=== PATIENT | male | born 1955 | race Caucasian/White ===

== ENCOUNTER 2024-02-17 17:55 | Outpatient (CLI) | payer MEDICARE | END 2024-02-17 23:59 | disposition critical access hospital (66) | LOC: EMS 17:55 | DX: R41.0 Disorientation, unspecified (principal); M54.50 Low back pain, unspecified; W19.XXXA Unspecified fall, initial encounter; R32 Unspecified urinary incontinence; R00.0 Tachycardia, unspecified | CPT/HCPCS: A0425; A0429 ==

== ENCOUNTER 2024-02-17 18:15 | Inpatient (IN) | payer MEDICARE, OTHER ==
--- NOTE | 2024-02-17 18:40 | ED Physician Documentation ---
History of Present Illness - Stated complaint Stated Complaint: CONFUSION, FELL, FOUND ON FLOOR - Chief complaint Chief Complaint: Neuro - Additonal information Additional information: Patient is a 68-year-old male presenting to the emergency department after receiving call from EMS who noted that he was found on the ground by family and very confused. Patient on arrival knows the year but not the date. He does report falling but does not recall. He notes pain to his head and his left shoulder and neck but no other pain. He does not recall but does feel that he fell multiple times at home today. He notes he did not take any of his medications. He is on oxygen at this time as saturations were in the 83% and he was significantly tachycardic on arrival. Blood sugar was stable in the 140s on arrival.Patient is not on oxygen at baseline. PD PAST MEDICAL HISTORY - Past Medical History Endocrine/Autoimmune: Type 2 diabetes - Allergies Allergies/Adverse Reactions: Allergies Allergy/AdvReac Type Severity Reaction Status Date / Time Unable to Assess Allergy Verified 02/17/24 18:25 - Social History Does the pt smoke?: No Smoking Status: Never smoker - POLST Patient has POLST: No PD ED PE NORMAL - Vitals Vital signs reviewed: Yes - General General: Other (Patient ANO x 1 on arrival.) - HEENT HEENT: Atraumatic, Other (Dry mucous membranes appreciated.) - Neck Neck: Supple, no meningeal sign - Cardiac Cardiac: RRR, No murmur, No gallop, No rub, Strong equal pulses - Respiratory Respiratory: Other (Patient hypoxic on arrival and started on nasal cannula oxygen.) - Abdomen Abdomen: Normal bowel sounds - Male Male : Deferred - Rectal Rectal: Deferred - Back Back: No CVA TTP, No spinal TTP - Derm Derm: Normal color, Warm and dry, No rash - Extremities Extremities: No deformity, No edema, Other (No pain on palpation of the upper or lower extremities no obvious deformity appreciated no bruising no rash no swelling appreciated on examination.) - Free text exam Free text exam: Patient able to answer questions without difficulty. Patient aware he is in a hospital but not sure of the date. Patient denies any pain other than neck pain and left shoulder pain. Results - Vitals Vitals: Vital Signs - 24 hr 02/17/24 02/17/24 02/17/24 18:25 19:00 20:10 Temperature 36.8 C Heart Rate 148 H 121 H Respiratory 20 18 Rate Blood Pressure 146/102 H 132/88 H O2 Saturation 89 L 95 96 If not protocol 2 : Oxygen Flow, liters/minute 02/17/24 02/17/24 02/17/24 20:32 20:43 21:06 Temperature Heart Rate 125 H 128 H 120 H Respiratory 18 25 H 28 H Rate Blood Pressure 130/84 H 161/101 H O2 Saturation 97 97 97 If not protocol 3 3 3 : Oxygen Flow, liters/minute 02/17/24 21:30 Temperature Heart Rate 124 H Respiratory Rate Blood Pressure 146/87 H O2 Saturation 98 If not protocol 2 : Oxygen Flow, liters/minute Oxygen O2 Source Nasal cannula Oxygen Flow Rate 3 - EKG (time done) 1858 EKG releavant findings:: EKG personally interpreted by author of this note. Relevant findings are: Rate: Rate (enter#), [place], Tachy, Other Rhythm: Atrial fibrillation [place]: Normal QRS: Normal Compare to prior EKG: Old EKG unavailable Computer interpretation: Agree with computer 2041 EKG releavant findings:: EKG personally interpreted by author of this note. Relevant findings are: Rate: Rate (enter#) Rhythm: Atrial fibrillation [place]: Normal QRS: Normal Compare to prior EKG: Unchanged from prior EKG Computer interpretation: Agree with computer - Labs Labs: Laboratory Tests 02/17/24 02/17/24 02/17/24 18:52 18:53 18:53 WBC RBC Hgb Hct MCV MCH MCHC RDW Plt Count MPV Neut # (Auto) Lymph # (Auto) [place] # (Auto) Eos # (Auto) Baso # (Auto) Absolute Nucleated RBC Nucleated RBC % PT INR Sodium Potassium Chloride Carbon Dioxide Anion Gap BUN Creatinine Estimated GFR (MDRD) Glucose Lactic Acid Calcium Magnesium Total Bilirubin AST ALT Alkaline Phosphatase Total Creatine Kinase Troponin I High Sens B-Natriuretic Peptide Total Protein Albumin Globulin Albumin/Globulin Ratio TSH Urine Color BROWN Urine Clarity CLEAR Urine pH 6.0 Ur Specific Ward >=1.030 H Urine Protein 100 H Urine Glucose (UA) 100 H Urine Ketones 15 H Urine Occult Blood NEGATIVE Urine Nitrite POSITIVE H Urine Bilirubin MODERATE H Urine Urobilinogen >=8.0 H Ur Leukocyte Esterase NEGATIVE Urine RBC 0-5 Urine WBC 0-3 Ur Squamous Epith Cells RARE Squamous Urine Crystals 11-25 Bilirubin Urine Bacteria Rare Urine Mucus Moderate Strands Ur Microscopic Review INDICATED Urine Culture Comments INDICATED Nasal Adenovirus (PCR) NOT DETECTED Nasal B. parapertussis DNA (PCR) NOT DETECTED Nasal Coronavir 229E PCR NOT DETECTED Nasal Coronavir HKU1 PCR NOT DETECTED Nasal Coronavir NL63 PCR NOT DETECTED Nasal Coronavir OC43 PCR NOT DETECTED Nasal Enterovir/Rhinovir PCR NOT DETECTED Nasal Influenza B PCR NOT DETECTED Nasal Influenza A PCR NOT DETECTED Nasal Parainfluen 1 PCR NOT DETECTED Nasal Parainfluen 2 PCR NOT DETECTED Nasal Parainfluen 3 PCR NOT DETECTED Nasal Parainfluen 4 PCR NOT DETECTED Nasal RSV (PCR) NOT DETECTED Nasal B.pertussis DNA PCR NOT DETECTED Nasal C.pneumoniae (PCR) NOT DETECTED Devin Human Metapneumo PCR NOT DETECTED Nasal M.pneumoniae (PCR) NOT DETECTED Nasal SARS-CoV-2 (PCR) NOT DETECTED Urine Opiates Screen NEGATIVE Ur Buprenorphine Scrn NEGATIVE Ur Oxycodone Screen NEGATIVE Urine Methadone Screen NEGATIVE Ur Barbiturates Screen NEGATIVE Ur Tricyclics Screen NEGATIVE Ur Phencyclidine Scrn NEGATIVE Ur Amphetamine Screen NEGATIVE U Methamphetamines Scrn POSITIVE H U Benzodiazepines Scrn NEGATIVE Urine Cocaine Screen NEGATIVE U Cannabinoids Screen NEGATIVE Ur Drug Screen Comment CUTOFF CONC BELOW: Ethyl Alcohol 02/17/24 02/17/24 02/17/24 19:05 19:05 19:05 WBC 13.3 H RBC 5.54 Hgb 16.0 Hct 49.3 MCV 89.0 MCH 28.9 MCHC 32.5 RDW 13.2 Plt Count 145 MPV 10.6 Neut # (Auto) 11.7 H Lymph # (Auto) 0.8 L [place] # (Auto) 0.7 Eos # (Auto) 0.0 Baso # (Auto) 0.0 Absolute Nucleated RBC 0.00 Nucleated RBC % 0.0 PT 14.3 H INR 1.3 H Sodium 137 Potassium 3.7 Chloride 101 Carbon Dioxide 26 Anion Gap 10.0 BUN 24 H Creatinine 0.9 Estimated GFR (MDRD) 84 L Glucose 171 H Lactic Acid Calcium 9.7 Magnesium 1.7 Total Bilirubin 1.9 H AST 31 ALT 24 Alkaline Phosphatase 65 Total Creatine Kinase 471 H Troponin I High Sens B-Natriuretic Peptide Total Protein 7.7 Albumin 4.1 Globulin 3.6 Albumin/Globulin Ratio 1.1 TSH Urine Color Urine Clarity Urine pH Ur Specific Ward Urine Protein Urine Glucose (UA) Urine Ketones Urine Occult Blood Urine Nitrite Urine Bilirubin Urine Urobilinogen Ur Leukocyte Esterase Urine RBC Urine WBC Ur Squamous Epith Cells Urine Crystals Urine Bacteria Urine Mucus Ur Microscopic Review Urine Culture Comments Nasal Adenovirus (PCR) Nasal B. parapertussis DNA (PCR) Nasal Coronavir 229E PCR Nasal Coronavir HKU1 PCR Nasal Coronavir NL63 PCR Nasal Coronavir OC43 PCR Nasal Enterovir/Rhinovir PCR Nasal Influenza B PCR Nasal Influenza A PCR Nasal Parainfluen 1 PCR Nasal Parainfluen 2 PCR Nasal Parainfluen 3 PCR Nasal Parainfluen 4 PCR Nasal RSV (PCR) Nasal B.pertussis DNA PCR Nasal C.pneumoniae (PCR) Devin Human Metapneumo PCR Nasal M.pneumoniae (PCR) Nasal SARS-CoV-2 (PCR) Urine Opiates Screen Ur Buprenorphine Scrn Ur Oxycodone Screen Urine Methadone Screen Ur Barbiturates Screen Ur Tricyclics Screen Ur Phencyclidine Scrn Ur Amphetamine Screen U Methamphetamines Scrn U Benzodiazepines Scrn Urine Cocaine Screen U Cannabinoids Screen Ur Drug Screen Comment Ethyl Alcohol 02/17/24 02/17/24 02/17/24 19:05 19:05 19:05 WBC RBC Hgb Hct MCV MCH MCHC RDW Plt Count MPV Neut # (Auto) Lymph # (Auto) [place] # (Auto) Eos # (Auto) Baso # (Auto) Absolute Nucleated RBC Nucleated RBC % PT INR Sodium Potassium Chloride Carbon Dioxide Anion Gap BUN Creatinine Estimated GFR (MDRD) Glucose Lactic Acid 1.8 Calcium Magnesium Total Bilirubin AST ALT Alkaline Phosphatase Total Creatine Kinase Troponin I High Sens 6.8 B-Natriuretic Peptide Total Protein Albumin Globulin Albumin/Globulin Ratio TSH Urine Color Urine Clarity Urine pH Ur Specific Ward Urine Protein Urine Glucose (UA) Urine Ketones Urine Occult Blood Urine Nitrite Urine Bilirubin Urine Urobilinogen Ur Leukocyte Esterase Urine RBC Urine WBC Ur Squamous Epith Cells Urine Crystals Urine Bacteria Urine Mucus Ur Microscopic Review Urine Culture Comments Nasal Adenovirus (PCR) Nasal B. parapertussis DNA (PCR) Nasal Coronavir 229E PCR Nasal Coronavir HKU1 PCR Nasal Coronavir NL63 PCR Nasal Coronavir OC43 PCR Nasal Enterovir/Rhinovir PCR Nasal Influenza B PCR Nasal Influenza A PCR Nasal Parainfluen 1 PCR Nasal Parainfluen 2 PCR Nasal Parainfluen 3 PCR Nasal Parainfluen 4 PCR Nasal RSV (PCR) Nasal B.pertussis DNA PCR Nasal C.pneumoniae (PCR) Devin Human Metapneumo PCR Nasal M.pneumoniae (PCR) Nasal SARS-CoV-2 (PCR) Urine Opiates Screen Ur Buprenorphine Scrn Ur Oxycodone Screen Urine Methadone Screen Ur Barbiturates Screen Ur Tricyclics Screen Ur Phencyclidine Scrn Ur Amphetamine Screen U Methamphetamines Scrn U Benzodiazepines Scrn Urine Cocaine Screen U Cannabinoids Screen Ur Drug Screen Comment Ethyl Alcohol < 10.0 02/17/24 02/17/24 19:05 19:05 WBC RBC Hgb Hct MCV MCH MCHC RDW Plt Count MPV Neut # (Auto) Lymph # (Auto) [place] # (Auto) Eos # (Auto) Baso # (Auto) Absolute Nucleated RBC Nucleated RBC % PT INR Sodium Potassium Chloride Carbon Dioxide Anion Gap BUN Creatinine Estimated GFR (MDRD) Glucose Lactic Acid Calcium Magnesium Total Bilirubin AST ALT Alkaline Phosphatase Total Creatine Kinase Troponin I High Sens B-Natriuretic Peptide 48 Total Protein Albumin Globulin Albumin/Globulin Ratio TSH 5.86 H Urine Color Urine Clarity Urine pH Ur Specific Ward Urine Protein Urine Glucose (UA) Urine Ketones Urine Occult Blood Urine Nitrite Urine Bilirubin Urine Urobilinogen Ur Leukocyte Esterase Urine RBC Urine WBC Ur Squamous Epith Cells Urine Crystals Urine Bacteria Urine Mucus Ur Microscopic Review Urine Culture Comments Nasal Adenovirus (PCR) Nasal B. parapertussis DNA (PCR) Nasal Coronavir 229E PCR Nasal Coronavir HKU1 PCR Nasal Coronavir NL63 PCR Nasal Coronavir OC43 PCR Nasal Enterovir/Rhinovir PCR Nasal Influenza B PCR Nasal Influenza A PCR Nasal Parainfluen 1 PCR Nasal Parainfluen 2 PCR Nasal Parainfluen 3 PCR Nasal Parainfluen 4 PCR Nasal RSV (PCR) Nasal B.pertussis DNA PCR Nasal C.pneumoniae (PCR) Devin Human Metapneumo PCR Nasal M.pneumoniae (PCR) Nasal SARS-CoV-2 (PCR) Urine Opiates Screen Ur Buprenorphine Scrn Ur Oxycodone Screen Urine Methadone Screen Ur Barbiturates Screen Ur Tricyclics Screen Ur Phencyclidine Scrn Ur Amphetamine Screen U Methamphetamines Scrn U Benzodiazepines Scrn Urine Cocaine Screen U Cannabinoids Screen Ur Drug Screen Comment Ethyl Alcohol PD Medical Decision Making - ED course Complexity details: reviewed old records, reviewed results, re-evaluated patient ED course: Patient is a 68-year-old male presenting to the emergency department after being found down on the ground by EMS after receiving a call from patient's family. Patient on arrival on 2 L nasal cannula as he was saturating at 89% patient is not on oxygen at baseline. Patient rambling on arrival but able to follow directions and answer direct questions he is ANO x 1 on arrival. Patient persistently tachycardic EKG obtained on arrival does show concerning findings for atrial fibrillation. Discussed case with patient and she notes he has a history of hypertension and diabetes but she does not know much more about his past medical history. She notes she found him at home and he was persistently talking which is very unusual for him and she became concerned so she called the EMS. She notes about 2 days ago he fell at home but was able to get back up from going to the bathroom and she was not as concerned at the time.She notes he has a history of substance and alcohol abuse but this has not been a problem for him recently. Labs here in the emergency department show elevated CK in the 400s concerning for rhabdomyolysis given color of urine on examination arrival and the fact that patient was found down on arrival. Howevere no significant electrolyte abnormality with these symptoms. Mild leukocytosis at 13.3 no significant HARDIK here despite armenta catheter needing to be placed for urinary retention of 800cc with PVCs. Urinalysis is positive for UTI with positive nitrates however no white blood cells in urine. Pending culture here in emergency department. Chest x-ray does show diffuse interstitial prominence. Concerning for fluid overload versus atypical infection. Blood cultures were obtained and patient was started on ceftriaxone and azithromycin to cover for UTI versus atypical pneumonia.Patient remains on 1 L nasal cannula oxygen however tachycardia slightly improved heart rates in the 120s after a liter and a half of fluids. Will hold off on further fluids at this time as concerning for chest x-ray showing fluid overload. Repeat EKG confirms atrial fibrillation here in the emergency department. Patient's blood pressures remained stable dose of IV metoprolol was given to see if this will help persistent atrial fibrillation. Respiratory panel is negative. Urine drug screen does show meth amphetamine. Unsure patient's history with history of ADHD and family members are unaware of patient's significant past medical history. Patient does report he has a history of atrial fibrillation. However he is unable to recall any of the medications he is on at this time.CT head returned negative C-spine shows no acute fracture or dislocation. Discussed case with hospitalist for possible admission she is agreeable with this plan at this time. Will continue to monitor patient's vitals he will be admitted to the floor at this time. Departure - Departure Disposition: 67 [facility] DC/Xfer Clinical Impression: Sepsis, Pneumonia, UTI (urinary tract infection), Altered mental status, Confusion, Fall, Weakness Condition: Poor Forms: PCP List
[2024-02-17] MEDS: SODIUM CHLORIDE 0.9% 500 ML IV STA (19:03)
[2024-02-17 19:06] LABS: BILIRUBIN,URINE MODERATE (NEGATIVE); GLUCOSE, URINE (UA) 100 mg/dL (NEGATIVE); KETONES,URINE (UA) 15 mg/dL (NEGATIVE); LEUKOCYTE ESTERASE, URINE NEGATIVE (NEGATIVE); NITRITE,URINE POSITIVE (NEGATIVE); OCCULT BLOOD,URINE NEGATIVE (NEGATIVE); PROTEIN,URINE 100 mg/dL (NEGATIVE); UROBILINOGEN,URINE >=8.0 E.U./dL (NORMAL)
[2024-02-17 19:07] LABS: CLARITY,URINE CLEAR (CLEAR)
[2024-02-17 19:13] LABS: BASOPHILS % (AUTO) 0.3 %; EOSINOPHILS % (AUTO) 0.2 %; HCT - HEMATOCRIT 49.3 % (42.0-52.0); LYMPHOCYTES # (AUTO) 0.8 10^3/uL (1.5-3.5); LYMPHOCYTES % (AUTO) 6.1 %; MEAN CORPUSCULAR HEMOGLOBIN 28.9 pg (27.0-31.0); MEAN CORPUSCULAR HGB CONC 32.5 g/dL (32.0-36.0); MEAN PLATELET VOLUME 10.6 fL (7.4-11.4); MONOCYTES # (AUTO) 0.7 10^3/uL (0.0-1.0); NEUTROPHILS # (AUTO) 11.7 10^3/uL (1.5-6.6); NEUTROPHILS % (AUTO) 87.4 %; PLT - PLATELET COUNT 145 10^3/uL (130-450); RED BLOOD COUNT 5.54 10^6/uL (4.70-6.10); RED CELL DISTRIBUTION WIDTH 13.2 % (12.0-15.0); WHITE BLOOD COUNT 13.3 x10^3/uL (4.8-10.8)
[2024-02-17 19:18] LABS: BACTERIA,URINE Rare /HPF (None Seen); RBC,URINE 0-5 /HPF (0-5); SQUAMOUS EPITHELIAL CELL,UR RARE Squamous (<= Few); WBC,URINE 0-3 /HPF (0-3)
[2024-02-17 19:19] LABS: CRYSTALS,URINE 11-25 Bilirubin /LPF; MUCUS,URINE Moderate Strands
[2024-02-17 19:31] LABS: INR 1.3 (0.8-1.2); PT - PROTHROMBIN TIME 14.3 secs (9.9-12.6)
[2024-02-17 20:01] LABS: MAGNESIUM 1.7 mg/dL (1.7-2.3)
[2024-02-17 20:07] LABS: ALBUMIN 4.1 g/dL (3.2-5.5); ALBUMIN/GLOBULIN RATIO 1.1 (1.0-2.2); BILIRUBIN,TOTAL 1.9 mg/dL (0.2-1.0); CALCIUM 9.7 mg/dL (8.5-10.3); CREATININE 0.9 mg/dL (0.6-1.3); POTASSIUM 3.7 mmol/L (3.5-4.5); TOTAL PROTEIN 7.7 g/dL (6.4-8.9)
[2024-02-17 20:11] LABS: B. PARAPERTUSSIS- RESP PCR PAN NOT DETECTED; B. PERTUSSIS- RESP PCR PANEL NOT DETECTED; C. PNEUMONIAE- RESP PCR PANEL NOT DETECTED; CORONAVIRUS 229E-RESP PCR NOT DETECTED; CORONAVIRUS HKU1-RESP PCR NOT DETECTED; CORONAVIRUS NL63-RESP PCR NOT DETECTED; CORONAVIRUS OC43-RESP PCR NOT DETECTED; HUMAN METAPNEUMOVIRUS NOT DETECTED; INFLUENZA A- RESP PCR PANEL NOT DETECTED; INFLUENZA B - RESP PCR PANEL NOT DETECTED; M. PNEUMONIAE- RESP PCR PANEL NOT DETECTED; PARAINFLUENZA VIRUS 1 NOT DETECTED; PARAINFLUENZA VIRUS 2 NOT DETECTED; PARAINFLUENZA VIRUS 3 NOT DETECTED; PARAINFLUENZA VIRUS 4 NOT DETECTED; RHINOVIRUS/ENTEROVIRUS NOT DETECTED; RSV- RESP PCR PANEL NOT DETECTED; SARS-CoV-2 -RESP PCR PANEL NOT DETECTED
[2024-02-17] MEDS ORDERED: cefTRIAXone 2 GM VIAL ONE (20:13)
[2024-02-17] MEDS: cefTRIAXone 2 GM in SODIUM CHLORIDE 0.9% MINIBAG 100 ML IV STA (20:14)
--- NOTE | 2024-02-17 20:23 | CT Report ---
PROCEDURE: Head WO INDICATIONS: fall at home TECHNIQUE: Noncontrast 4.5 mm thick angled axial sections acquired from the foramen magnum to the vertex. For r adiation dose reduction, the following was used: automated exposure control, adjustment of mA and/or kV according to patient size. COMPARISON: None. FINDINGS: Image quality: Diagnostic CSF spaces: Basal cisterns are patent. Lateral ventricles are symmetric. Volume: Vascular calcifications. Periventricular white matter disease is commonly seen with chronic m icroangiopathy. Volume loss is present. These findings are mild to moderate. Brain: No acute intracranial hemorrhage. No gross loss of covington-white differentiation Craniofacial structures: No significant mastoid effusion. There are ethmoid and frontal ethmoidal par anasal sinus opacities. Possible supraorbital contusion. No displaced calvarial fracture. IMPRESSION: No acute intracranial abnormality. Reviewed by: Wilmer Bertrand MD on 02/17/2024 8:22 PM PDT Approved by: Wilmer Bertrand MD on 02/17/2024 8:22 PM PDT Station ID: [id number]
--- NOTE | 2024-02-17 20:25 | CT Report ---
PROCEDURE: Cervical Spine WO INDICATIONS: cervical neck pain TECHNIQUE: Noncontrast 3 mm thick sections acquired from the skull base to the T4 level. Sagittal and coronal r eformats were then constructed. For radiation dose reduction, the following was used: automated exp osure control, adjustment of mA and/or kV according to patient size. COMPARISON: None. FINDINGS: Image quality: Diagnostic Bones: Mild to moderate degenerative changes. No acute displaced fracture or traumatic subluxation. N uchal ligament calcifications are seen. Soft tissues: No pathologic prevertebral soft tissue swelling. No evidence of pneumothorax. Mild airs pace opacity seen at the left apex, with atelectasis. IMPRESSION: Mild to moderate degenerative changes without acute displaced fracture or dislocation. Suspected nuchal ligament calcifications. Mild left lung apex airspace groundglass opacities, probably infectious/inflammatory, and possible at electasis. Consider future imaging surveillance to assess for resolution. Reviewed by: Wilmer Bertrand MD on 02/17/2024 8:24 PM PDT Approved by: Wilmer Bertrand MD on 02/17/2024 8:24 PM PDT Station ID: [id number]
--- NOTE | 2024-02-17 20:26 | XRAY Report ---
PROCEDURE: Chest 1V INDICATIONS: sob, cough, hypoxia TECHNIQUE: One view of the chest was acquired. COMPARISON: None. FINDINGS: Surgical changes and devices: None. Lungs and pleura: Mild to moderate diffuse interstitial prominence. Possible trace left effusion. No dense consolidation elsewhere. Mediastinum: Heart size is at the upper lateral normal. Bones and chest wall: Degenerative changes IMPRESSION: Diffuse interstitial prominence, with a possible trace left pleural effusion. Findings may represent edema versus atypical infection. Consider future imaging surveillance to assess for resolution. Reviewed by: Wilmer Bertrand MD on 02/17/2024 8:25 PM PDT Approved by: Wilmer Bertrand MD on 02/17/2024 8:25 PM PDT Station ID: [id number]
[2024-02-17 20:45] LABS: COCAINE SCREEN URINE NEGATIVE (NEGATIVE); METHAMPHETAMINES SCREEN, URINE POSITIVE (NEGATIVE); OPIATE SCREEN, URINE NEGATIVE (NEGATIVE); THC CANNABINOID SCREEN, URINE NEGATIVE (NEGATIVE)
[2024-02-17 20:46] LABS: AMPHETAMINE SCREEN,URINE NEGATIVE (NEGATIVE); BARBITURATE SCREEN,UR NEGATIVE (NEGATIVE); BENZODIAZEPINES SCREEN, URINE NEGATIVE (NEGATIVE); BUPRENORPHINE SCREEN, URINE NEGATIVE (NEGATIVE); METHADONE SCREEN, URINE NEGATIVE (NEGATIVE); OXYCODONE SCREEN, URINE NEGATIVE (NEGATIVE); TRICYCLIC ANTIDEPRESSANT,URINE NEGATIVE (NEGATIVE)
[2024-02-17] MEDS: AZITHROMYCIN INJ 500 MG in SODIUM CHLORIDE 0.9% 250 ML IV STA (21:39)
[2024-02-17] MEDS: METOPROLOL 5 MG/5 ML VIAL IVP STA (21:41)
[2024-02-17] MEDS ORDERED: ACETAMINOPHEN 325 MG TABLET PO PRN (21:42)
[2024-02-17] MEDS ORDERED: SODIUM CHLORIDE FLUSH 0.9% 10 ML SYRINGE IVP PRN (21:42)
[2024-02-17] MEDS ORDERED: METOPROLOL 5 MG/5 ML VIAL IVP PRN (22:11)
--- NOTE | 2024-02-17 22:32 | HISTORY & PHYSICAL EXAMINATION ---
Chief Complaint - Chief Complaint Chief Complaint: altered mental status History of Present Illness - Admitted From Admitted From:: home - History Obtained From Records Reviewed: Yes History obtained from: ED physician, , Daughter Exam Limitations: Altered Mental status - History of Present Illness HPI Comment/Other: Mr. Gale was brought in by EMS after being found down by family. Patient was A&O to person only, history obtained from records, ED physician and family members at bedside. Per , she last saw patient the morning prior as she works from 4am to 4pm.She explained that he had been taking over the counter cough and sleep medicine for the past few days due to having increase congestion. He did appear more lethargic the day prior to presentation. When she arrived home he was on the floor. he did not have any visible injuries but was talking nonsense. In the ED, he underwent evaluation. There weren't any other focal neurologic deficits noted.labwork was concerning for infection with leukocytosis, UA with nitrites and bacteria. chest xray demonstrated basilar opacities concerning for pneumonia. patient started on empiric antibiotics and hospitalist was asked to admit for further monitoring. patient met sepsis criteria on presentation. On evaluation he was tachycardic, alert but disoriented. He answered questions with the assistance from family and followed commands.He explained he could not recall what happened prior to coming to the hospital. Per 's report he has a history of afib and diabetes. he also suffers from depression. they deny any knowledge of substance abuse. This visit was obtained utilizing tele-medicine tools including live video. Inform consent was obtained to complete this visit utilizing available telemedicine modalities. Plan of care was discussed with family at bedside. History - Past Medical History Cardiovascular: reports: Atrial fibrillation Endocrine/Autoimmune: reports: Type 2 diabetes Psych: reports: Depression, Anxiety - POLST Patient has POLST: No Meds/Allgy - Allergies Allergies/Adverse Reactions: Allergies Allergy/AdvReac Type Severity Reaction Status Date / Time Unable to Assess Allergy Verified 02/17/24 18:25 Review of Systems - All Other Systems All Other Systems: reports: Reviewed and negative Exam - Vital Signs Reviewed Vital Signs: Yes Vital Signs: Vital Signs x48h Temp Pulse Resp BP Pulse Ox O2 Flow Rate 02/17/24 22:05 104 H 25 H 137/102 H 97 02/17/24 21:59 101 H 22 137/102 H 96 02/17/24 21:30 124 H 146/87 H 98 2 02/17/24 21:06 120 H 28 H 97 3 02/17/24 20:43 128 H 25 H 161/101 H 97 3 02/17/24 20:32 125 H 18 130/84 H 97 3 02/17/24 20:10 121 H 18 132/88 H 96 02/17/24 19:00 95 2 02/17/24 18:25 36.8 C 148 H 20 146/102 H 89 L - Physical Exam General Appearance: positive: No acute distress, Alert Eyes Bilateral: positive: Normal inspection, EOMI Respiratory: positive: Chest non-tender, No respiratory distress Cardiovascular: positive: Irregularly irregular Abdomen: positive: No distention, Tenderness Skin: positive: Color nml, No rash, Warm, Dry Extremities: positive: Non-tender, Full ROM, Nml appearance Neurologic/Psychiatric: positive: CN's nml (2-12), Motor nml, Sensation nml, Disoriented to place, Disoriented to time Sepsis Event Note (H) - Evaluation Current Stage of Sepsis: Sepsis Possible source of Sepsis: positive: Pulmonary, Genitourinary - Sepsis Criteria Sepsis Criteria: Recorded Heart Rate greater than 90 bpm, Respiratory: Increasing oxygen requirements, WBC count greater than 12,000 or less than 4000, MANUFACTURING ENGINEERING INTERN: altered consciousness (unrelated to primary neuro pathology) Conclusion/Plan - Problem List (1) Sepsis Conclusion/Plan: -continue with empiric antibiotics, cultures pending -IVf resuscitation, monitor vitals and UOP -continous telemetry -trend inflammatory markers: WBC, lactic acid, procalcitonin Qualifiers: Sepsis type: sepsis due to unspecified organism Severe sepsis acute organ dysfunction type: encephalopathy Severe sepsis shock status: without septic shock (2) Altered mental status Conclusion/Plan: -metabolic encephalopathy secondary to underlying infection -monitor with serial neurochecks for improvement with treatment of acute infection -follow up imaging to evaluation for non-organic underlying neurologic etiology -avoid sedative regimens as appropriate at this time. Qualifiers: Altered mental status type: disorientation Qualified Code(s): R41.0 - Disorientation, unspecified (3) Pneumonia Conclusion/Plan: -chest xray reviewed independently -duonebs and incentive spirometry -continue with supplemnetal oxyge -empiric antibiotics -follow up on respiratory viral panel. (4) UTI (urinary tract infection) Conclusion/Plan: -continue with empiric antibiotics, follow up on cultures -monitor uop -continue to monitor vitals and temperature to gauge clinical improvment (5) Rhabdomyolysis Conclusion/Plan: -elevated CK, UA. continue to trend CK levels to monitor for resolution. -continue with IVF fluids 125cc/hr -monitor UOP and renal labs (6) Fall Conclusion/Plan: -etiology uncertain -fall precaution in place -CT head as fall was unwitnessed -physical therapy evaluation may be warranted prior to discharge (7) Atrial fibrillation with RVR Conclusion/Plan: -acute on chronic, home regimen unknown -continue with conservative management of rate control in the setting of sepsis -prn IV Lopressor 5mg q4h for HR management -monitor and replace electrolytes as needed per protocol -closely monitor on telemetry -will obtain PTT/INR/PT. will give a dose of Lovenox once CT head clear for evidence of intracranial bleeding. -will resume home regimen once family provides (8) Diabetes mellitus Conclusion/Plan: - family uncertain of home regimen -will monitor with acucheck and cover per protocol with sliding scale insulin -initiate hypoglycemia protocol as needed. - Lab Results Lab results reviewed: Yes Fish Bones: 02/17/24 19:05 02/17/24 19:05 - Diagnostic Imaging Results Diagnostic Imaging Results: positive: Final report reviewed, Read independently - EKG Results EKG Interpreted Independently: Yes Core Measures - Anticipated LOS I expect patient to be DC'd or transferred within 96 hours.: Yes - DVT/VTE - Prophylaxis VTE/DVT Device ordered at admit?: Yes Telemedicine Consult Details - Provider Location & Consult Time Telemedicine consultation conducted via videoconferencing?: Yes
[2024-02-17] MEDS: SODIUM CHLORIDE 0.9% 1,000 ML IV SCH (23:45)
[2024-02-17] MEDS: INSULIN REGULAR, HUMAN 300 UNIT/3 ML PEN SUBQ SCH (23:50)
--- NOTE | 2024-02-18 00:41 | PROVIDER PROGRESS NOTE ---
Turning Machine Operator Note - Turning Machine Operator Note Turning Machine Operator Note: Called by RN stating "Pt was given 2gms Rocephin IVPB in ED at 2044. MAR states to give another 1gm IVP right now. Per [facility], that is too much Rocephin. We cannot give IV Push abx at this hospital. Can you please let us know next time to give and place order as IVPB. Thank you." Discussed with RN to give the next dose tomorrow and hold the additional dose at this time
[2024-02-18] MEDS: cefTRIAXone 1 GM VIAL IVP STA (03:17)
[2024-02-18 05:14] LABS: CALCIUM 8.4 mg/dL (8.5-10.3); CREATININE 0.7 mg/dL (0.6-1.3); POTASSIUM 3.5 mmol/L (3.5-4.5)
[2024-02-18] MEDS: SODIUM CHLORIDE FLUSH 0.9% 10 ML SYRINGE IVP SCH (05:41)
[2024-02-18] MEDS: ENOXAPARIN 100 MG/ML SYRINGE SUBQ SCH (06:29)
[2024-02-18] MEDS: AZITHROMYCIN INJ 500 MG in SODIUM CHLORIDE 0.9% 250 ML IV SCH (08:53)
[2024-02-18] MEDS ORDERED: METOPROLOL SUCCINATE 50 MG TABLET PO SCH (09:00)
--- NOTE | 2024-02-18 10:50 | PROVIDER PROGRESS NOTE ---
Subjective - Prog Note Date Prog Note Date: 02/18/24 Prog Note Time: 10:48 - Subjective Subjective: Patient awake oriented x 3 denies any chest pain or shortness of breath admits to coughing no fever no chills comfortablePatient denies to be homicidal or suicidal. Current Medications - Current Medications Current Medications: Active Medications Acetaminophen (Acetaminophen 325 Mg Tablet) 650 mg PO Q4HR PRN PRN Reason: Pain 1 to 4, or Fever Enoxaparin Sodium (Enoxaparin 100 Mg/Ml Syringe) 120 mg SUBQ ONCE REPLACED BY [facility] Stop: 02/19/24 06:59 Last Admin: 02/18/24 06:29 Dose: 120 mg Azithromycin 500 mg/ Sodium (Chloride) 250 mls @ 250 mls/hr IV DAILY REPLACED BY [facility] Last Infusion: 02/18/24 10:12 Dose: Infused Sodium Chloride (Normal Saline 0.9%) 1,000 mls @ 125 mls/hr IV .Q8H REPLACED BY [facility] Last Admin: 02/18/24 06:30 Dose: 125 mls/hr Insulin Human Lispro (Insulin Lispro 300 Unit/3 Ml Pen) 1 - 5 unit SUBQ 0800,1200,1700,2100 REPLACED BY [facility]; Protocol Sodium Chloride (Sodium Chloride Flush 0.9% 10 Ml Syringe) 10 ml IVP PRN PRN PRN Reason: NEEDED PER PROVIDER ORDERS Sodium Chloride (Sodium Chloride Flush 0.9% 10 Ml Syringe) 10 ml IVP 0100,0900,1700 REPLACED BY [facility] Last Admin: 02/18/24 08:53 Dose: Not Given Dabigatran Etexilate Mesylate [Dabigatran Etexilate] 150 mg PO BID 02/18/24 Digoxin [Lanoxin] 125 mcg PO DAILY 02/18/24 Glimepiride [Amaryl] 2 mg PO UD 02/18/24 Lisinopril [Zestril] 10 mg PO BID 02/18/24 Metformin HCl [Metformin ER Osmotic] 1,000 mg PO BID 02/18/24 Metoprolol Succinate [Toprol Xl] 50 mg PO DAILY 02/18/24 buPROPion HCL [Bupropion HCl Sr] 150 mg PO UD 02/18/24 traZODone [Desyrel] 50 - 100 mg PO QPM 02/18/24 Objective - Vital Signs/Intake & Output Reviewed Vital Signs: Yes Vital Signs: Vital Signs x48h Temp Pulse Resp BP Pulse Ox O2 Flow Rate 02/18/24 09:00 37 C 118 H 18 101/73 93 3 02/18/24 07:00 3 02/18/24 04:35 36.7 C 108 H 16 142/85 H 92 3 Intake & Output: Intake & Output 02/15/24 02/16/24 02/17/24 02/18/24 23:59 23:59 23:59 23:59 Intake Total 600 1343.75 Output Total 850 200 Balance -250 1143.75 - Objective General Appearance: positive: No acute distress Eyes Bilateral: positive: PERRL Neck: positive: Trachea midline Respiratory: positive: Breath sounds nml Cardiovascular: positive: Regular rate & rhythm, No murmur Abdomen: positive: Non-tender, Nml bowel sounds, No distention. negative: Guarding, Rebound Skin: positive: Warm Extremities: positive: No pedal edema Neurologic/Psychiatric: positive: Oriented x3, Motor nml - Lab Results Fish Bones: 02/17/24 19:05 02/18/24 04:45 Other Labs: Lab Results x24hrs 02/18/24 02/18/24 02/18/24 Range/Units 09:47 06:24 04:45 WBC (4.8-10.8) x10^3/uL RBC (4.70-6.10) 10^6/uL Hgb (14.0-18.0) g/dL Hct (42.0-52.0) % MCV (80.0-94.0) fL MCH (27.0-31.0) pg MCHC (32.0-36.0) g/dL RDW (12.0-15.0) % Plt Count (130-450) 10^3/uL MPV (7.4-11.4) fL Neut # (Auto) (1.5-6.6) 10^3/uL Lymph # (Auto) (1.5-3.5) 10^3/uL [place] # (Auto) (0.0-1.0) 10^3/uL Eos # (Auto) (0.0-0.7) 10^3/uL Baso # (Auto) (0.0-0.1) 10^3/uL Absolute Nucleated RBC x10^3/uL Nucleated RBC % /100WBC PT (9.9-12.6) secs INR (0.8-1.2) Sodium 138 (135-145) mmol/L Potassium 3.5 (3.5-4.5) mmol/L Chloride 107 (101-111) mmol/L Carbon Dioxide 26 (21-32) mmol/L Anion Gap 5.0 L (6-13) BUN 23 H (6-20) mg/dL Creatinine 0.7 (0.6-1.3) mg/dL Estimated GFR (MDRD) 112 (>89) Glucose 131 H (74-104) mg/dL POC Whole Bld Glucose 113 H (70 - 100) mg/dL Lactic Acid 0.7 (0.5-2.2) mmol/L Calcium 8.4 L (8.5-10.3) mg/dL Magnesium (1.7-2.3) mg/dL Total Bilirubin (0.2-1.0) mg/dL AST (10-42) IU/L ALT (10-60) IU/L Alkaline Phosphatase (42-121) IU/L Total Creatine Kinase (30-223) IU/L Troponin I High Sens (2.3-19.7) ng/L B-Natriuretic Peptide (5-100) pg/mL Total Protein (6.4-8.9) g/dL Albumin (3.2-5.5) g/dL Globulin (2.1-4.2) g/dL Albumin/Globulin Ratio (1.0-2.2) Procalcitonin Immunoas (<0.5) ng/mL TSH (0.34-5.60) uIU/mL Urine Color Urine Clarity (CLEAR) Urine pH (5.0-7.5) PH Ur Specific [place] (1.002-1.030) Urine Protein (NEGATIVE) mg/dL Urine Glucose (UA) (NEGATIVE) mg/dL Urine Ketones (NEGATIVE) mg/dL Urine Occult Blood (NEGATIVE) Urine Nitrite (NEGATIVE) Urine Bilirubin (NEGATIVE) Urine Urobilinogen (NORMAL) E.U./dL Ur Leukocyte Esterase (NEGATIVE) Urine RBC (0-5) /HPF Urine WBC (0-3) /HPF Ur Squamous Epith Cells (<= Few) Urine Crystals /LPF Urine Bacteria (None Seen) /HPF Urine Mucus Ur Microscopic Review Urine Culture Comments Nasal Adenovirus (PCR) Nasal B. parapertussis DNA (PCR) Nasal Coronavir 229E PCR Nasal Coronavir HKU1 PCR Nasal Coronavir NL63 PCR Nasal Coronavir OC43 PCR Nasal Enterovir/Rhinovir PCR Nasal Influenza B PCR Nasal Influenza A PCR Nasal Parainfluen 1 PCR Nasal Parainfluen 2 PCR Nasal Parainfluen 3 PCR Nasal Parainfluen 4 PCR Nasal RSV (PCR) Nasal B.pertussis DNA PCR Nasal C.pneumoniae (PCR) Devin Human Metapneumo PCR Nasal M.pneumoniae (PCR) Nasal SARS-CoV-2 (PCR) Urine Opiates Screen (NEGATIVE) Ur Buprenorphine Scrn (NEGATIVE) Ur Oxycodone Screen (NEGATIVE) Urine Methadone Screen (NEGATIVE) Ur Barbiturates Screen (NEGATIVE) Ur Tricyclics Screen (NEGATIVE) Ur Phencyclidine Scrn (NEGATIVE) Ur Amphetamine Screen (NEGATIVE) U Methamphetamines Scrn (NEGATIVE) U Benzodiazepines Scrn (NEGATIVE) Urine Cocaine Screen (NEGATIVE) U Cannabinoids Screen (NEGATIVE) Ur Drug Screen Comment Ethyl Alcohol mg/dL 02/18/24 02/17/24 02/17/24 Range/Units 04:45 23:44 21:56 WBC (4.8-10.8) x10^3/uL RBC (4.70-6.10) 10^6/uL Hgb (14.0-18.0) g/dL Hct (42.0-52.0) % MCV (80.0-94.0) fL MCH (27.0-31.0) pg MCHC (32.0-36.0) g/dL RDW (12.0-15.0) % Plt Count (130-450) 10^3/uL MPV (7.4-11.4) fL Neut # (Auto) (1.5-6.6) 10^3/uL Lymph # (Auto) (1.5-3.5) 10^3/uL [place] # (Auto) (0.0-1.0) 10^3/uL Eos # (Auto) (0.0-0.7) 10^3/uL Baso # (Auto) (0.0-0.1) 10^3/uL Absolute Nucleated RBC x10^3/uL Nucleated RBC % /100WBC PT (9.9-12.6) secs INR (0.8-1.2) Sodium (135-145) mmol/L Potassium (3.5-4.5) mmol/L Chloride (101-111) mmol/L Carbon Dioxide (21-32) mmol/L Anion Gap (6-13) BUN (6-20) mg/dL Creatinine (0.6-1.3) mg/dL Estimated GFR (MDRD) (>89) Glucose (74-104) mg/dL POC Whole Bld Glucose 133 H (70 - 100) mg/dL Lactic Acid 0.7 1.3 (0.5-2.2) mmol/L Calcium (8.5-10.3) mg/dL Magnesium (1.7-2.3) mg/dL Total Bilirubin (0.2-1.0) mg/dL AST (10-42) IU/L ALT (10-60) IU/L Alkaline Phosphatase (42-121) IU/L Total Creatine Kinase (30-223) IU/L Troponin I High Sens (2.3-19.7) ng/L B-Natriuretic Peptide (5-100) pg/mL Total Protein (6.4-8.9) g/dL Albumin (3.2-5.5) g/dL Globulin (2.1-4.2) g/dL Albumin/Globulin Ratio (1.0-2.2) Procalcitonin Immunoas (<0.5) ng/mL TSH (0.34-5.60) uIU/mL Urine Color Urine Clarity (CLEAR) Urine pH (5.0-7.5) PH Ur Specific [place] (1.002-1.030) Urine Protein (NEGATIVE) mg/dL Urine Glucose (UA) (NEGATIVE) mg/dL Urine Ketones (NEGATIVE) mg/dL Urine Occult Blood (NEGATIVE) Urine Nitrite (NEGATIVE) Urine Bilirubin (NEGATIVE) Urine Urobilinogen (NORMAL) E.U./dL Ur Leukocyte Esterase (NEGATIVE) Urine RBC (0-5) /HPF Urine WBC (0-3) /HPF Ur Squamous Epith Cells (<= Few) Urine Crystals /LPF Urine Bacteria (None Seen) /HPF Urine Mucus Ur Microscopic Review Urine Culture Comments Nasal Adenovirus (PCR) Nasal B. parapertussis DNA (PCR) Nasal Coronavir 229E PCR Nasal Coronavir HKU1 PCR Nasal Coronavir NL63 PCR Nasal Coronavir OC43 PCR Nasal Enterovir/Rhinovir PCR Nasal Influenza B PCR Nasal Influenza A PCR Nasal Parainfluen 1 PCR Nasal Parainfluen 2 PCR Nasal Parainfluen 3 PCR Nasal Parainfluen 4 PCR Nasal RSV (PCR) Nasal B.pertussis DNA PCR Nasal C.pneumoniae (PCR) Devin Human Metapneumo PCR Nasal M.pneumoniae (PCR) Nasal SARS-CoV-2 (PCR) Urine Opiates Screen (NEGATIVE) Ur Buprenorphine Scrn (NEGATIVE) Ur Oxycodone Screen (NEGATIVE) Urine Methadone Screen (NEGATIVE) Ur Barbiturates Screen (NEGATIVE) Ur Tricyclics Screen (NEGATIVE) Ur Phencyclidine Scrn (NEGATIVE) Ur Amphetamine Screen (NEGATIVE) U Methamphetamines Scrn (NEGATIVE) U Benzodiazepines Scrn (NEGATIVE) Urine Cocaine Screen (NEGATIVE) U Cannabinoids Screen (NEGATIVE) Ur Drug Screen Comment Ethyl Alcohol mg/dL 02/17/24 02/17/24 02/17/24 Range/Units 19:05 19:05 19:05 WBC (4.8-10.8) x10^3/uL RBC (4.70-6.10) 10^6/uL Hgb (14.0-18.0) g/dL Hct (42.0-52.0) % MCV (80.0-94.0) fL MCH (27.0-31.0) pg MCHC (32.0-36.0) g/dL RDW (12.0-15.0) % Plt Count (130-450) 10^3/uL MPV (7.4-11.4) fL Neut # (Auto) (1.5-6.6) 10^3/uL Lymph # (Auto) (1.5-3.5) 10^3/uL [place] # (Auto) (0.0-1.0) 10^3/uL Eos # (Auto) (0.0-0.7) 10^3/uL Baso # (Auto) (0.0-0.1) 10^3/uL Absolute Nucleated RBC x10^3/uL Nucleated RBC % /100WBC PT (9.9-12.6) secs INR (0.8-1.2) Sodium (135-145) mmol/L Potassium (3.5-4.5) mmol/L Chloride (101-111) mmol/L Carbon Dioxide (21-32) mmol/L Anion Gap (6-13) BUN (6-20) mg/dL Creatinine (0.6-1.3) mg/dL Estimated GFR (MDRD) (>89) Glucose (74-104) mg/dL POC Whole Bld Glucose (70 - 100) mg/dL Lactic Acid (0.5-2.2) mmol/L Calcium (8.5-10.3) mg/dL Magnesium (1.7-2.3) mg/dL Total Bilirubin (0.2-1.0) mg/dL AST (10-42) IU/L ALT (10-60) IU/L Alkaline Phosphatase (42-121) IU/L Total Creatine Kinase (30-223) IU/L Troponin I High Sens (2.3-19.7) ng/L B-Natriuretic Peptide 48 (5-100) pg/mL Total Protein (6.4-8.9) g/dL Albumin (3.2-5.5) g/dL Globulin (2.1-4.2) g/dL Albumin/Globulin Ratio (1.0-2.2) Procalcitonin Immunoas 0.13 (<0.5) ng/mL TSH 5.86 H (0.34-5.60) uIU/mL Urine Color Urine Clarity (CLEAR) Urine pH (5.0-7.5) PH Ur Specific [place] (1.002-1.030) Urine Protein (NEGATIVE) mg/dL Urine Glucose (UA) (NEGATIVE) mg/dL Urine Ketones (NEGATIVE) mg/dL Urine Occult Blood (NEGATIVE) Urine Nitrite (NEGATIVE) Urine Bilirubin (NEGATIVE) Urine Urobilinogen (NORMAL) E.U./dL Ur Leukocyte Esterase (NEGATIVE) Urine RBC (0-5) /HPF Urine WBC (0-3) /HPF Ur Squamous Epith Cells (<= Few) Urine Crystals /LPF Urine Bacteria (None Seen) /HPF Urine Mucus Ur Microscopic Review Urine Culture Comments Nasal Adenovirus (PCR) Nasal B. parapertussis DNA (PCR) Nasal Coronavir 229E PCR Nasal Coronavir HKU1 PCR Nasal Coronavir NL63 PCR Nasal Coronavir OC43 PCR Nasal Enterovir/Rhinovir PCR Nasal Influenza B PCR Nasal Influenza A PCR Nasal Parainfluen 1 PCR Nasal Parainfluen 2 PCR Nasal Parainfluen 3 PCR Nasal Parainfluen 4 PCR Nasal RSV (PCR) Nasal B.pertussis DNA PCR Nasal C.pneumoniae (PCR) Devin Human Metapneumo PCR Nasal M.pneumoniae (PCR) Nasal SARS-CoV-2 (PCR) Urine Opiates Screen (NEGATIVE) Ur Buprenorphine Scrn (NEGATIVE) Ur Oxycodone Screen (NEGATIVE) Urine Methadone Screen (NEGATIVE) Ur Barbiturates Screen (NEGATIVE) Ur Tricyclics Screen (NEGATIVE) Ur Phencyclidine Scrn (NEGATIVE) Ur Amphetamine Screen (NEGATIVE) U Methamphetamines Scrn (NEGATIVE) U Benzodiazepines Scrn (NEGATIVE) Urine Cocaine Screen (NEGATIVE) U Cannabinoids Screen (NEGATIVE) Ur Drug Screen Comment Ethyl Alcohol mg/dL 02/17/24 02/17/24 02/17/24 Range/Units 19:05 19:05 19:05 WBC (4.8-10.8) x10^3/uL RBC (4.70-6.10) 10^6/uL Hgb (14.0-18.0) g/dL Hct (42.0-52.0) % MCV (80.0-94.0) fL MCH (27.0-31.0) pg MCHC (32.0-36.0) g/dL RDW (12.0-15.0) % Plt Count (130-450) 10^3/uL MPV (7.4-11.4) fL Neut # (Auto) (1.5-6.6) 10^3/uL Lymph # (Auto) (1.5-3.5) 10^3/uL [place] # (Auto) (0.0-1.0) 10^3/uL Eos # (Auto) (0.0-0.7) 10^3/uL Baso # (Auto) (0.0-0.1) 10^3/uL Absolute Nucleated RBC x10^3/uL Nucleated RBC % /100WBC PT (9.9-12.6) secs INR (0.8-1.2) Sodium (135-145) mmol/L Potassium (3.5-4.5) mmol/L Chloride (101-111) mmol/L Carbon Dioxide (21-32) mmol/L Anion Gap (6-13) BUN (6-20) mg/dL Creatinine (0.6-1.3) mg/dL Estimated GFR (MDRD) (>89) Glucose (74-104) mg/dL POC Whole Bld Glucose (70 - 100) mg/dL Lactic Acid 1.8 (0.5-2.2) mmol/L Calcium (8.5-10.3) mg/dL Magnesium (1.7-2.3) mg/dL Total Bilirubin (0.2-1.0) mg/dL AST (10-42) IU/L ALT (10-60) IU/L Alkaline Phosphatase (42-121) IU/L Total Creatine Kinase (30-223) IU/L Troponin I High Sens 6.8 (2.3-19.7) ng/L B-Natriuretic Peptide (5-100) pg/mL Total Protein (6.4-8.9) g/dL Albumin (3.2-5.5) g/dL Globulin (2.1-4.2) g/dL Albumin/Globulin Ratio (1.0-2.2) Procalcitonin Immunoas (<0.5) ng/mL TSH (0.34-5.60) uIU/mL Urine Color Urine Clarity (CLEAR) Urine pH (5.0-7.5) PH Ur Specific [place] (1.002-1.030) Urine Protein (NEGATIVE) mg/dL Urine Glucose (UA) (NEGATIVE) mg/dL Urine Ketones (NEGATIVE) mg/dL Urine Occult Blood (NEGATIVE) Urine Nitrite (NEGATIVE) Urine Bilirubin (NEGATIVE) Urine Urobilinogen (NORMAL) E.U./dL Ur Leukocyte Esterase (NEGATIVE) Urine RBC (0-5) /HPF Urine WBC (0-3) /HPF Ur Squamous Epith Cells (<= Few) Urine Crystals /LPF Urine Bacteria (None Seen) /HPF Urine Mucus Ur Microscopic Review Urine Culture Comments Nasal Adenovirus (PCR) Nasal B. parapertussis DNA (PCR) Nasal Coronavir 229E PCR Nasal Coronavir HKU1 PCR Nasal Coronavir NL63 PCR Nasal Coronavir OC43 PCR Nasal Enterovir/Rhinovir PCR Nasal Influenza B PCR Nasal Influenza A PCR Nasal Parainfluen 1 PCR Nasal Parainfluen 2 PCR Nasal Parainfluen 3 PCR Nasal Parainfluen 4 PCR Nasal RSV (PCR) Nasal B.pertussis DNA PCR Nasal C.pneumoniae (PCR) Devin Human Metapneumo PCR Nasal M.pneumoniae (PCR) Nasal SARS-CoV-2 (PCR) Urine Opiates Screen (NEGATIVE) Ur Buprenorphine Scrn (NEGATIVE) Ur Oxycodone Screen (NEGATIVE) Urine Methadone Screen (NEGATIVE) Ur Barbiturates Screen (NEGATIVE) Ur Tricyclics Screen (NEGATIVE) Ur Phencyclidine Scrn (NEGATIVE) Ur Amphetamine Screen (NEGATIVE) U Methamphetamines Scrn (NEGATIVE) U Benzodiazepines Scrn (NEGATIVE) Urine Cocaine Screen (NEGATIVE) U Cannabinoids Screen (NEGATIVE) Ur Drug Screen Comment Ethyl Alcohol < 10.0 mg/dL 02/17/24 02/17/24 02/17/24 Range/Units 19:05 19:05 19:05 WBC 13.3 H (4.8-10.8) x10^3/uL RBC 5.54 (4.70-6.10) 10^6/uL Hgb 16.0 (14.0-18.0) g/dL Hct 49.3 (42.0-52.0) % MCV 89.0 (80.0-94.0) fL MCH 28.9 (27.0-31.0) pg MCHC 32.5 (32.0-36.0) g/dL RDW 13.2 (12.0-15.0) % Plt Count 145 (130-450) 10^3/uL MPV 10.6 (7.4-11.4) fL Neut # (Auto) 11.7 H (1.5-6.6) 10^3/uL Lymph # (Auto) 0.8 L (1.5-3.5) 10^3/uL [place] # (Auto) 0.7 (0.0-1.0) 10^3/uL Eos # (Auto) 0.0 (0.0-0.7) 10^3/uL Baso # (Auto) 0.0 (0.0-0.1) 10^3/uL Absolute Nucleated RBC 0.00 x10^3/uL Nucleated RBC % 0.0 /100WBC PT 14.3 H (9.9-12.6) secs INR 1.3 H (0.8-1.2) Sodium 137 (135-145) mmol/L Potassium 3.7 (3.5-4.5) mmol/L Chloride 101 (101-111) mmol/L Carbon Dioxide 26 (21-32) mmol/L Anion Gap 10.0 (6-13) BUN 24 H (6-20) mg/dL Creatinine 0.9 (0.6-1.3) mg/dL Estimated GFR (MDRD) 84 L (>89) Glucose 171 H (74-104) mg/dL POC Whole Bld Glucose (70 - 100) mg/dL Lactic Acid (0.5-2.2) mmol/L Calcium 9.7 (8.5-10.3) mg/dL Magnesium 1.7 (1.7-2.3) mg/dL Total Bilirubin 1.9 H (0.2-1.0) mg/dL AST 31 (10-42) IU/L ALT 24 (10-60) IU/L Alkaline Phosphatase 65 (42-121) IU/L Total Creatine Kinase 471 H (30-223) IU/L Troponin I High Sens (2.3-19.7) ng/L B-Natriuretic Peptide (5-100) pg/mL Total Protein 7.7 (6.4-8.9) g/dL Albumin 4.1 (3.2-5.5) g/dL Globulin 3.6 (2.1-4.2) g/dL Albumin/Globulin Ratio 1.1 (1.0-2.2) Procalcitonin Immunoas (<0.5) ng/mL TSH (0.34-5.60) uIU/mL Urine Color Urine Clarity (CLEAR) Urine pH (5.0-7.5) PH Ur Specific [place] (1.002-1.030) Urine Protein (NEGATIVE) mg/dL Urine Glucose (UA) (NEGATIVE) mg/dL Urine Ketones (NEGATIVE) mg/dL Urine Occult Blood (NEGATIVE) Urine Nitrite (NEGATIVE) Urine Bilirubin (NEGATIVE) Urine Urobilinogen (NORMAL) E.U./dL Ur Leukocyte Esterase (NEGATIVE) Urine RBC (0-5) /HPF Urine WBC (0-3) /HPF Ur Squamous Epith Cells (<= Few) Urine Crystals /LPF Urine Bacteria (None Seen) /HPF Urine Mucus Ur Microscopic Review Urine Culture Comments Nasal Adenovirus (PCR) Nasal B. parapertussis DNA (PCR) Nasal Coronavir 229E PCR Nasal Coronavir HKU1 PCR Nasal Coronavir NL63 PCR Nasal Coronavir OC43 PCR Nasal Enterovir/Rhinovir PCR Nasal Influenza B PCR Nasal Influenza A PCR Nasal Parainfluen 1 PCR Nasal Parainfluen 2 PCR Nasal Parainfluen 3 PCR Nasal Parainfluen 4 PCR Nasal RSV (PCR) Nasal B.pertussis DNA PCR Nasal C.pneumoniae (PCR) Devin Human Metapneumo PCR Nasal M.pneumoniae (PCR) Nasal SARS-CoV-2 (PCR) Urine Opiates Screen (NEGATIVE) Ur Buprenorphine Scrn (NEGATIVE) Ur Oxycodone Screen (NEGATIVE) Urine Methadone Screen (NEGATIVE) Ur Barbiturates Screen (NEGATIVE) Ur Tricyclics Screen (NEGATIVE) Ur Phencyclidine Scrn (NEGATIVE) Ur Amphetamine Screen (NEGATIVE) U Methamphetamines Scrn (NEGATIVE) U Benzodiazepines Scrn (NEGATIVE) Urine Cocaine Screen (NEGATIVE) U Cannabinoids Screen (NEGATIVE) Ur Drug Screen Comment Ethyl Alcohol mg/dL 02/17/24 02/17/24 02/17/24 Range/Units 18:53 18:53 18:52 WBC (4.8-10.8) x10^3/uL RBC (4.70-6.10) 10^6/uL Hgb (14.0-18.0) g/dL Hct (42.0-52.0) % MCV (80.0-94.0) fL MCH (27.0-31.0) pg MCHC (32.0-36.0) g/dL RDW (12.0-15.0) % Plt Count (130-450) 10^3/uL MPV (7.4-11.4) fL Neut # (Auto) (1.5-6.6) 10^3/uL Lymph # (Auto) (1.5-3.5) 10^3/uL [place] # (Auto) (0.0-1.0) 10^3/uL Eos # (Auto) (0.0-0.7) 10^3/uL Baso # (Auto) (0.0-0.1) 10^3/uL Absolute Nucleated RBC x10^3/uL Nucleated RBC % /100WBC PT (9.9-12.6) secs INR (0.8-1.2) Sodium (135-145) mmol/L Potassium (3.5-4.5) mmol/L Chloride (101-111) mmol/L Carbon Dioxide (21-32) mmol/L Anion Gap (6-13) BUN (6-20) mg/dL Creatinine (0.6-1.3) mg/dL Estimated GFR (MDRD) (>89) Glucose (74-104) mg/dL POC Whole Bld Glucose (70 - 100) mg/dL Lactic Acid (0.5-2.2) mmol/L Calcium (8.5-10.3) mg/dL Magnesium (1.7-2.3) mg/dL Total Bilirubin (0.2-1.0) mg/dL AST (10-42) IU/L ALT (10-60) IU/L Alkaline Phosphatase (42-121) IU/L Total Creatine Kinase (30-223) IU/L Troponin I High Sens (2.3-19.7) ng/L B-Natriuretic Peptide (5-100) pg/mL Total Protein (6.4-8.9) g/dL Albumin (3.2-5.5) g/dL Globulin (2.1-4.2) g/dL Albumin/Globulin Ratio (1.0-2.2) Procalcitonin Immunoas (<0.5) ng/mL TSH (0.34-5.60) uIU/mL Urine Color BROWN Urine Clarity CLEAR (CLEAR) Urine pH 6.0 (5.0-7.5) PH Ur Specific [place] >=1.030 H (1.002-1.030) Urine Protein 100 H (NEGATIVE) mg/dL Urine Glucose (UA) 100 H (NEGATIVE) mg/dL Urine Ketones 15 H (NEGATIVE) mg/dL Urine Occult Blood NEGATIVE (NEGATIVE) Urine Nitrite POSITIVE H (NEGATIVE) Urine Bilirubin MODERATE H (NEGATIVE) Urine Urobilinogen >=8.0 H (NORMAL) E.U./dL Ur Leukocyte Esterase NEGATIVE (NEGATIVE) Urine RBC 0-5 (0-5) /HPF Urine WBC 0-3 (0-3) /HPF Ur Squamous Epith Cells RARE Squamous (<= Few) Urine Crystals 11-25 Bilirubin /LPF Urine Bacteria Rare (None Seen) /HPF Urine Mucus Moderate Strands Ur Microscopic Review INDICATED Urine Culture Comments INDICATED Nasal Adenovirus (PCR) NOT DETECTED Nasal B. parapertussis DNA (PCR) NOT DETECTED Nasal Coronavir 229E PCR NOT DETECTED Nasal Coronavir HKU1 PCR NOT DETECTED Nasal Coronavir NL63 PCR NOT DETECTED Nasal Coronavir OC43 PCR NOT DETECTED Nasal Enterovir/Rhinovir PCR NOT DETECTED Nasal Influenza B PCR NOT DETECTED Nasal Influenza A PCR NOT DETECTED Nasal Parainfluen 1 PCR NOT DETECTED Nasal Parainfluen 2 PCR NOT DETECTED Nasal Parainfluen 3 PCR NOT DETECTED Nasal Parainfluen 4 PCR NOT DETECTED Nasal RSV (PCR) NOT DETECTED Nasal B.pertussis DNA PCR NOT DETECTED Nasal C.pneumoniae (PCR) NOT DETECTED Devin Human Metapneumo PCR NOT DETECTED Nasal M.pneumoniae (PCR) NOT DETECTED Nasal SARS-CoV-2 (PCR) NOT DETECTED Urine Opiates Screen NEGATIVE (NEGATIVE) Ur Buprenorphine Scrn NEGATIVE (NEGATIVE) Ur Oxycodone Screen NEGATIVE (NEGATIVE) Urine Methadone Screen NEGATIVE (NEGATIVE) Ur Barbiturates Screen NEGATIVE (NEGATIVE) Ur Tricyclics Screen NEGATIVE (NEGATIVE) Ur Phencyclidine Scrn NEGATIVE (NEGATIVE) Ur Amphetamine Screen NEGATIVE (NEGATIVE) U Methamphetamines Scrn POSITIVE H (NEGATIVE) U Benzodiazepines Scrn NEGATIVE (NEGATIVE) Urine Cocaine Screen NEGATIVE (NEGATIVE) U Cannabinoids Screen NEGATIVE (NEGATIVE) Ur Drug Screen Comment CUTOFF CONC BELOW: Ethyl Alcohol mg/dL ABX Reporting Has patient been on IV antibiotics over the past 48 hours?: Yes Sepsis Event Note (H) - Evaluation Current Stage of Sepsis: Sepsis Possible source of Sepsis: positive: Pulmonary, Genitourinary - Sepsis Criteria Sepsis Criteria: Recorded Heart Rate greater than 90 bpm, Respiratory: Increasing oxygen requirements, WBC count greater than 12,000 or less than 4000, RECEIVING OPERATOR: altered consciousness (unrelated to primary neuro pathology) Assessment/Plan - Problem List (1) Sepsis Impression: Will continue with empiric IV Rocephin/IV azithromycin Continue IV hydration Downtrending lactic acid Elevated procalcitonin level Obtain inflammatory markers ESR CRP Continue telemetry monitoring Follow-up blood culture Follow-up urine culture UA positive for infection Monitor vitals and urine output (2) Pneumonia Impression: Chest x-ray consistent with diffuse interstitial prominence edema versus atypical infection Continue azithromycin and ceftriaxone As needed bronchodilators O2 nasal cannula Early ambulation (4) UTI (urinary tract infection) Impression: UA positive for infection Follow-up urine culture Continue with Rocephin for the moment (5) Encephalopathy acute Impression: CT of head negative Cervical CT shows mild to moderate degenerative changes without acute displaced fractures or dislocation Mildly elevated TSH will check free T4 Chest x-ray with positive finding for pneumonia Metabolic encephalopathy secondary to underlying infection improved Positive urine toxicology (6) Rhabdomyolysis Impression: Elevated CK and history of fall consistent with rhabdomyolysis Continue IV hydration Monitor CK level Early ambulation/physical therapy (7) Afib Impression: Will continue home dose Pradaxa Start Pradaxa this evening as patient has already received subcu Lovenox this a .m. Will continue home dose of beta-dewayne Obtain free T4 level (8) Diabetes mellitus Impression: Continue home dose glimepiride Obtain hemoglobin A1c Accu-Cheks before meals and at bedtime Insulin sliding scale Initiate metformin as well Discussed with pharmacy (9) Fall Impression: CT of head negative CT of cervical shows degenerative disc disease no acute fracture or subluxation Continue PT OT Fall precautions
[2024-02-18] MEDS: INSULIN LISPRO 300 UNIT/3 ML PEN SUBQ SCH (12:00)
[2024-02-18] MEDS: buPROPion SR 150 MG TABLET PO SCH (12:00)
[2024-02-18] MEDS: cefTRIAXone 2 GM in SODIUM CHLORIDE 0.9% MINIBAG 100 ML IV SCH (12:07)
--- NOTE | 2024-02-18 12:21 | PHARMACY PROGRESS NOTE ---
- Best Possible Medication History Admit Date and Time: 02/17/242141 Processed by: Pharmacy Medications reviewed in ED?: No Medication History completed: Yes Patient Interview: Completed Secondary Source(s): Insurance records As the person ultimately responsible for medication therapy, providers are able to order a medication from an existing home medication list in [facility] via the "Reconcile Routine" prior to Confirmation of that medication by production support engineer. Such practice is discouraged except when the physician, in their clinical judgment, deems that a medical need exists for a medication without regard to previous use.
[2024-02-18] MEDS: METOPROLOL SUCCINATE 50 MG TABLET PO SCH (12:52)
[2024-02-18] MEDS: DIGOXIN 125 MCG TABLET PO SCH (12:52)
[2024-02-18] MEDS: POTASSIUM CHLORIDE 20 MEQ TABLET PO SCH (12:52)
[2024-02-18] MEDS: lisinopriL 5 MG TABLET PO ONE (12:52)
[2024-02-18] MEDS: metFORMIN 500 MG TABLET PO SCH (17:48)
[2024-02-18 20:51] LABS: ESTIMATED AVERAGE GLUCOSE 128 mg/dL (70-100); HEMOGLOBIN A1c% 6.1 % (4.27-6.07)
[2024-02-18] MEDS ORDERED: lisinopriL 5 MG TABLET PO SCH (21:00)
[2024-02-18] MEDS: traZODone 50 MG TABLET PO SCH (21:04)
[2024-02-18] MEDS: APIXABAN 5 MG TABLET PO SCH (21:04)
[2024-02-19 05:54] LABS: BASOPHILS % (AUTO) 0.4 %; EOSINOPHILS # (AUTO) 0.3 10^3/uL (0.0-0.7); EOSINOPHILS % (AUTO) 3.7 %; HCT - HEMATOCRIT 41.9 % (42.0-52.0); HGB - HEMOGLOBIN 13.2 g/dL (14.0-18.0); LYMPHOCYTES # (AUTO) 1.5 10^3/uL (1.5-3.5); LYMPHOCYTES % (AUTO) 16.8 %; MEAN CORPUSCULAR HEMOGLOBIN 29.1 pg (27.0-31.0); MEAN CORPUSCULAR HGB CONC 31.5 g/dL (32.0-36.0); MEAN CORPUSCULAR VOLUME 92.3 fL (80.0-94.0); MONOCYTES # (AUTO) 0.7 10^3/uL (0.0-1.0); MONOCYTES % (AUTO) 7.3 %; NEUTROPHILS # (AUTO) 6.3 10^3/uL (1.5-6.6); NEUTROPHILS % (AUTO) 70.3 %; PLT - PLATELET COUNT 138 10^3/uL (130-450); RED BLOOD COUNT 4.54 10^6/uL (4.70-6.10); RED CELL DISTRIBUTION WIDTH 13.8 % (12.0-15.0); WHITE BLOOD COUNT 8.9 x10^3/uL (4.8-10.8)
[2024-02-19 06:10] LABS: CALCIUM 8.3 mg/dL (8.5-10.3); CREATININE 0.7 mg/dL (0.6-1.3); POTASSIUM 3.6 mmol/L (3.5-4.5)
[2024-02-19] MEDS: lisinopriL 5 MG TABLET PO SCH (08:23)
--- NOTE | 2024-02-19 16:44 | PROVIDER PROGRESS NOTE ---
Assessment/Plan - Current Meds Current Meds: Current Medications Generic Name Dose Route Start Last Admin Trade Name Evelyne PRN Reason Stop Dose Admin Apixaban 5 mg 02/18/24 21:00 02/19/24 08:23 Apixaban 5 Mg Tablet PO 5 mg BID KRISTIN Administration Bupropion HCl 150 mg 02/18/24 12:00 02/18/24 12:00 Bupropion Sr 150 Mg Tablet PO 150 mg Q4D KRISTIN Administration Digoxin 250 mcg 02/18/24 13:00 02/19/24 08:22 Digoxin 125 Mcg Tablet PO 250 mcg DAILY KRISTIN Administration Azithromycin 500 mg/ Sodium 250 mls @ 250 mls/hr 02/18/24 09:00 02/19/24 09:40 Chloride IV Infused DAILY KRISTIN Infusion Sodium Chloride 1,000 mls @ 125 mls/hr 02/17/24 22:00 02/19/24 15:44 Normal Saline 0.9% IV 125 mls/hr .Q8H KRISTIN Administration Ceftriaxone Sodium 2 gm/ 100 mls @ 200 mls/hr 02/18/24 12:00 02/19/24 10:35 Sodium Chloride IV Infused DAILY KRISTIN Infusion Insulin Human Lispro 1 - 5 unit 02/18/24 12:00 02/19/24 11:50 Insulin Lispro 300 Unit/3 Ml Pen SUBQ Not Given 0800,1200,1700,2100 [facility] Protocol Lisinopril 10 mg 02/19/24 09:00 02/19/24 08:23 Lisinopril 5 Mg Tablet PO 10 mg BID KRISTIN Administration Metformin HCl 1,000 mg 02/18/24 17:00 02/19/24 08:23 Metformin 500 Mg Tablet PO 1,000 mg BIDWM KRISTIN Administration Metoprolol Succinate 50 mg 02/18/24 13:00 02/19/24 08:23 Metoprolol Succinate 50 Mg Tablet PO 50 mg DAILY KRISTIN Administration Potassium Chloride 20 meq 02/18/24 13:00 02/19/24 08:22 Potassium Chloride 20 Meq Tablet PO 20 meq DAILYWM KRISTIN Administration Sodium Chloride 10 ml 02/18/24 01:00 02/19/24 08:43 Sodium Chloride Flush 0.9% 10 Ml Syringe IVP Not Given 0100,0900,1700 [facility] Trazodone HCl 50 mg 02/18/24 21:00 02/18/24 21:04 Trazodone 50 Mg Tablet PO 50 mg QPM KRISTIN Administration - Lab Result Fish Bone Diagrams: 02/19/24 05:29 02/19/24 05:29 - Additional Planning Condition/Complexity: Stable My Orders: My Active Orders 02/19/24 15:19 Armenta Discontinuation [RC] ONCE Plan Discussed with:: Patient Additional Planning Notes: 1. Pneumonia Day 2/3 IV azithro, Day 2/5 IV rocephin. Continues to have rhonchi on exam and productive cough. Anticipate changing to po abx prior to d/c. 2. Acute metabolic encephalopathy Improving. He was confused on admission. He notes he has no recollection of the events prior to admission. He would like to have his armenta cath d/c'd. Order written. 3. DM2 BGs fairly well controlled. Continue metformin and SSI, controlled carb diet. 4. A fib Now rate controlled. Continue eliquis, metoprolol, dig. 5. Depression/anxiety On wellbutrin and trazodone. Denies SI. 6. L shoulder pain/generalized weakness He remains weak. He needed significant help from me to sit up in his bed. He notes his is petite and won't be able to help much. Await therapy assessment in am. He is open to for PT/OT. Code Full Prophy On eliquis Dispo Hopefully he will continue to improve and will show improved strength and be able to d/c tomorrow if safe w/therapy assessment. Subjective - Subjective Patient Reports: Feeling Better, Resting Comfortably, Cough Objective Vital Signs: Vital Signs - 24 hr 02/18/24 02/19/24 02/19/24 20:09 00:25 05:00 Temperature 36.4 C L 36.4 C L 36.7 C Heart Rate [ 98 97 92 Brachial] Respiratory 22 20 16 Rate Blood Pressure 107/72 108/72 124/81 H [Right Brachial artery] O2 Saturation 96 94 02/19/24 02/19/24 02/19/24 08:20 09:00 13:00 Temperature 36.5 C 36.5 C Heart Rate [ 98 105 H 91 Brachial] Respiratory 20 24 Rate Blood Pressure 121/81 H 137/98 H 117/80 [Right Brachial artery] O2 Saturation 95 95 02/19/24 16:06 Temperature 36.5 C Heart Rate [ 83 Brachial] Respiratory 20 Rate Blood Pressure 127/88 H [Right Brachial artery] O2 Saturation 96 Oxygen O2 Source Room air Oxygen Flow Rate 3 I&O (Last 24 Hrs): Intake and Output Totals x24h 02/17/24 02/18/24 02/19/24 23:59 23:59 23:59 Intake Total 600 5007.50 2570.416 Output Total 850 925 300 Balance -250 4082.50 2270.416 General: Alert, Oriented x3, Cooperative, No acute distress Cardiovascular: Normal S1, Normal S2, Other (irreg irreg) Respiratory: Other (rhonchi in bilat bases, o/w ctab) Abdomen: Normal bowel sounds, Soft, No tenderness, No hepatospenomegaly Extremities: No clubbing, No cyanosis, No edema - Results Results: Laboratory Results WBC 8.9 x10^3/uL (4.8-10.8) 02/19/24 05:29 RBC 4.54 10^6/uL (4.70-6.10) L 02/19/24 05:29 Hgb 13.2 g/dL (14.0-18.0) L 02/19/24 05:29 Hct 41.9 % (42.0-52.0) L 02/19/24 05:29 MCV 92.3 fL (80.0-94.0) 02/19/24 05:29 MCH 29.1 pg (27.0-31.0) 02/19/24 05:29 MCHC 31.5 g/dL (32.0-36.0) L 02/19/24 05:29 RDW 13.8 % (12.0-15.0) 02/19/24 05:29 Plt Count 138 10^3/uL (130-450) 02/19/24 05:29 MPV 11.0 fL (7.4-11.4) 02/19/24 05:29 Neut # (Auto) 6.3 10^3/uL (1.5-6.6) 02/19/24 05:29 Lymph # (Auto) 1.5 10^3/uL (1.5-3.5) 02/19/24 05:29 Greene # (Auto) 0.7 10^3/uL (0.0-1.0) 02/19/24 05:29 Eos # (Auto) 0.3 10^3/uL (0.0-0.7) 02/19/24 05:29 Baso # (Auto) 0.0 10^3/uL (0.0-0.1) 02/19/24 05:29 Absolute Nucleated RBC 0.00 x10^3/uL 02/19/24 05:29 Nucleated RBC % 0.0 /100WBC 02/19/24 05:29 ESR 14 mm/Hr (0-20) 02/18/24 11:19 PT 14.3 secs (9.9-12.6) H 02/17/24 19:05 INR 1.3 (0.8-1.2) H 02/17/24 19:05 Sodium 139 mmol/L (135-145) 02/19/24 05:29 Potassium 3.6 mmol/L (3.5-4.5) 02/19/24 05:29 Chloride 109 mmol/L (101-111) 02/19/24 05:29 Carbon Dioxide 26 mmol/L (21-32) 02/19/24 05:29 Anion Gap 4.0 (6-13) L 02/19/24 05:29 BUN 24 mg/dL (6-20) H 02/19/24 05:29 Creatinine 0.7 mg/dL (0.6-1.3) 02/19/24 05:29 Estimated GFR (MDRD) 112 (>89) 02/19/24 05:29 Glucose 101 mg/dL (74-104) 02/19/24 05:29 POC Whole Bld Glucose 114 mg/dL (70 - 100) H 02/19/24 11:39 Estimat Average Glucose 128 mg/dL (70-100) H 02/18/24 11:19 Hemoglobin A1c % 6.1 % (4.27-6.07) H 02/18/24 11:19 Lactic Acid 1.0 mmol/L (0.5-2.2) 02/18/24 15:29 Calcium 8.3 mg/dL (8.5-10.3) L 02/19/24 05:29 Magnesium 1.7 mg/dL (1.7-2.3) 02/17/24 19:05 Total Bilirubin 1.9 mg/dL (0.2-1.0) H 02/17/24 19:05 AST 31 IU/L (10-42) 02/17/24 19:05 ALT 24 IU/L (10-60) 02/17/24 19:05 Alkaline Phosphatase 65 IU/L (42-121) 02/17/24 19:05 Total Creatine Kinase 165 IU/L (30-223) 02/19/24 05:29 Troponin I High Sens 6.8 ng/L (2.3-19.7) 02/17/24 19:05 C-Reactive Protein 11.0 mg/dL (<0.5) H 02/18/24 11:19 B-Natriuretic Peptide 48 pg/mL (5-100) 02/17/24 19:05 Total Protein 7.7 g/dL (6.4-8.9) 02/17/24 19:05 Albumin 4.1 g/dL (3.2-5.5) 02/17/24 19:05 Globulin 3.6 g/dL (2.1-4.2) 02/17/24 19:05 Albumin/Globulin Ratio 1.1 (1.0-2.2) 02/17/24 19:05 Procalcitonin Immunoas 0.13 ng/mL (<0.5) 02/17/24 19:05 TSH 5.86 uIU/mL (0.34-5.60) H 02/17/24 19:05 Free T4 Direct 1.05 ng/dL (0.58-1.64) 02/18/24 11:19 Urine Color BROWN 02/17/24 18:53 Urine Clarity CLEAR (CLEAR) 02/17/24 18:53 Urine pH 6.0 PH (5.0-7.5) 02/17/24 18:53 Ur Specific Lamont >=1.030 (1.002-1.030) H 02/17/24 18:53 Urine Protein 100 mg/dL (NEGATIVE) H 02/17/24 18:53 Urine Glucose (UA) 100 mg/dL (NEGATIVE) H 02/17/24 18:53 Urine Ketones 15 mg/dL (NEGATIVE) H 02/17/24 18:53 Urine Occult Blood NEGATIVE (NEGATIVE) 02/17/24 18:53 Urine Nitrite POSITIVE (NEGATIVE) H 02/17/24 18:53 Urine Bilirubin MODERATE (NEGATIVE) H 02/17/24 18:53 Urine Urobilinogen >=8.0 E.U./dL (NORMAL) H 18 18:53 Ur Leukocyte Esterase NEGATIVE (NEGATIVE) 1824 18:53 Urine RBC 0-5 /HPF (0-5) 1824 18:53 Urine WBC 0-3 /HPF (0-3) 02/17/24 18:53 Ur Squamous Epith Cells RARE Squamous (<= Few) 02/17/24 18:53 Urine Crystals 11-25 Bilirubin /LPF 02/17/24 18:53 Urine Bacteria Rare /HPF (None Seen) 02/17/24 18:53 Urine Mucus Moderate Strands 02/17/24 18:53 Ur Microscopic Review INDICATED 02/17/24 18:53 Urine Culture Comments INDICATED 02/17/24 18:53 Nasal Adenovirus (PCR) NOT DETECTED 02/17/24 18:52 Nasal B. parapertussis DNA (PCR) NOT DETECTED 02/17/24 18:52 Nasal Coronavir 229E PCR NOT DETECTED 02/17/24 18:52 Nasal Coronavir HKU1 PCR NOT DETECTED 02/17/24 18:52 Nasal Coronavir NL63 PCR NOT DETECTED 02/17/24 18:52 Nasal Coronavir OC43 PCR NOT DETECTED 02/17/24 18:52 Nasal Enterovir/Rhinovir PCR NOT DETECTED 02/17/24 18:52 Nasal Influenza B PCR NOT DETECTED 02/17/24 18:52 Nasal Influenza A PCR NOT DETECTED 02/17/24 18:52 Nasal Parainfluen 1 PCR NOT DETECTED 02/17/24 18:52 Nasal Parainfluen 2 PCR NOT DETECTED 02/17/24 18:52 Nasal Parainfluen 3 PCR NOT DETECTED 02/17/24 18:52 Nasal Parainfluen 4 PCR NOT DETECTED 02/17/24 18:52 Nasal RSV (PCR) NOT DETECTED 02/17/24 18:52 Nasal B.pertussis DNA PCR NOT DETECTED 02/17/24 18:52 Nasal C.pneumoniae (PCR) NOT DETECTED 02/17/24 18:52 Devin Human Metapneumo PCR NOT DETECTED 02/17/24 18:52 Nasal M.pneumoniae (PCR) NOT DETECTED 02/17/24 18:52 Nasal SARS-CoV-2 (PCR) NOT DETECTED 02/17/24 18:52 Urine Opiates Screen NEGATIVE (NEGATIVE) 02/17/24 18:53 Ur Buprenorphine Scrn NEGATIVE (NEGATIVE) 02/17/24 18:53 Ur Oxycodone Screen NEGATIVE (NEGATIVE) 02/17/24 18:53 Urine Methadone Screen NEGATIVE (NEGATIVE) 02/17/24 18:53 Ur Barbiturates Screen NEGATIVE (NEGATIVE) 02/17/24 18:53 Ur Tricyclics Screen NEGATIVE (NEGATIVE) 02/17/24 18:53 Ur Phencyclidine Scrn NEGATIVE (NEGATIVE) 02/17/24 18:53 Ur Amphetamine Screen NEGATIVE (NEGATIVE) 02/17/24 18:53 U Methamphetamines Scrn POSITIVE (NEGATIVE) H 02/17/24 18:53 U Benzodiazepines Scrn NEGATIVE (NEGATIVE) 02/17/24 18:53 Urine Cocaine Screen NEGATIVE (NEGATIVE) 02/17/24 18:53 U Cannabinoids Screen NEGATIVE (NEGATIVE) 02/17/24 18:53 Ur Drug Screen Comment CUTOFF CONC BELOW: 02/17/24 18:53 Ethyl Alcohol < 10.0 mg/dL 02/17/24 19:05 Sepsis Event Note (H) - Evaluation Current Stage of Sepsis: Resolved Possible source of Sepsis: positive: Pulmonary, Genitourinary - Sepsis Criteria Sepsis Criteria: Recorded Heart Rate greater than 90 bpm, Respiratory: Increasin g oxygen requirements, WBC count greater than 12,000 or less than 4000, GROUP PRODUCT MANAGER: altered consciousness (unrelated to primary neuro pathology) ABX Reporting Has patient been on IV antibiotics over the past 48 hours?: Yes
[2024-02-20 05:49] LABS: BASOPHILS % (AUTO) 0.5 %; EOSINOPHILS # (AUTO) 0.4 10^3/uL (0.0-0.7); EOSINOPHILS % (AUTO) 4.3 %; HCT - HEMATOCRIT 40.7 % (42.0-52.0); HGB - HEMOGLOBIN 12.8 g/dL (14.0-18.0); LYMPHOCYTES # (AUTO) 1.3 10^3/uL (1.5-3.5); LYMPHOCYTES % (AUTO) 14.6 %; MEAN CORPUSCULAR HGB CONC 31.4 g/dL (32.0-36.0); MEAN CORPUSCULAR VOLUME 92.3 fL (80.0-94.0); MEAN PLATELET VOLUME 10.7 fL (7.4-11.4); MONOCYTES # (AUTO) 0.7 10^3/uL (0.0-1.0); MONOCYTES % (AUTO) 7.9 %; NEUTROPHILS # (AUTO) 6.3 10^3/uL (1.5-6.6); NEUTROPHILS % (AUTO) 71.6 %; PLT - PLATELET COUNT 141 10^3/uL (130-450); RED BLOOD COUNT 4.41 10^6/uL (4.70-6.10); RED CELL DISTRIBUTION WIDTH 13.7 % (12.0-15.0); WHITE BLOOD COUNT 8.8 x10^3/uL (4.8-10.8)
[2024-02-20 06:05] LABS: CALCIUM 8.3 mg/dL (8.5-10.3); CREATININE 0.6 mg/dL (0.6-1.3); POTASSIUM 3.9 mmol/L (3.5-4.5)
[2024-02-20 08:07] VITALS: BP 139/95; O2SAT 95
--- NOTE | 2024-02-20 10:33 | Discharge Plan ---
Discharge Plan Problem Reviewed?: Yes Disposition: Home Health Service Condition: Stable Prescriptions: Cefdinir 300 mg PO BID #8 cap Cefdinir 300 mg PO BID #8 cap Diet: Diabetic Activity Restrictions: Activity as Tolerated Shower Restrictions: No Driving Restrictions: No Assistance Devices: Walker Weight Bearing: Full Weight Instruction Topics: Pneumonia Additional Instructions or Follow Up instructions: 1. Continue to take your antibiotics until they are gone 2. If you miss a dose, be sure to take it when you remember; if it is close to the next dose time, just skip it and continue to take it as prescribed 3. Return to the ED for fevers, inability to hold down food or fluids or uncontrolled symptoms 4. We are referring you to Home Health to improve your strength and balance. They will call you set up a schedule. Follow-Up Care: Home Health - PT, Home Health - OT No Smoking: If you smoke, Please STOP! Call for help.
--- NOTE | 2024-02-20 10:40 | DISCHARGE SUMMARY ---
Discharge Summary Admit Date: 02/17/24 Discharge Date: 02/20/24 Discharging Provider: Elizabeth Primary Care Provider: [facility] Code Status: Attempt Resuscitation Condition at Discharge: Stable Discharge Disposition: [facility] - DIAGNOSES Admission Diagnoses: 1. Sepsis 2. Altered mental status 3. Pneumonia 4. UTI 5. Rhabdomyolysis 6. Fall 7. A fib w/RVR 8. Diabetes Mellitus Discharge Diagnoses with Status of Each Condition: 1. Sepsis, resolved 2. Acute metabolic encephalopathy, resolved 3. Pneumonia, community acquired, improved 4. UTI, ruled out 5. Rhabdomyolysis, mild, resolved 6. Ground level fall, likely secondary to polypharmacy (OTC cough medications and antihypertensives) 7. A fib w/RVR, now rate controlled 8. Diabetes Mellitus type 2 - Well controlled w/A1C 6.1% 9. Depression/anxiety, chronic, stable 10. Left shoulder pain/generalized weakness, likely d/t fall, no evidence of fracture 11. Class 3 obesity, BMI 40 - HPI History of Present Illness: Per H&P: Mr. Gale was brought in by EMS after being found down by family. Patient was A&O to person only, history obtained from records, ED physician and family members at bedside. Per , she last saw patient the morning prior as she works from 4am to 4pm.She explained that he had been taking over the counter cough and sleep medicine for the past few days due to having increase congestion. He did appear more lethargic the day prior to presentation. When she arrived home he was on the floor. he did not have any visible injuries but was talking nonsense. In the ED, he underwent evaluation. There weren't any other focal neurologic deficits noted.labwork was concerning for infection with leukocytosis, UA with nitrites and bacteria. chest xray demonstrated basilar opacities concerning for pneumonia. patient started on empiric antibiotics and hospitalist was asked to admit for further monitoring. patient met sepsis criteria on presentation. On evaluation he was tachycardic, alert but disoriented. He answered questions with the assistance from family and followed commands.He explained he could not recall what happened prior to coming to the hospital. Per 's report he has a history of afib and diabetes. he also suffers from depression. they deny any knowledge of substance abuse. This visit was obtained utilizing tele-medicine tools including live video. Inform consent was obtained to complete this visit utilizing available telemedicine modalities. Plan of care was discussed with family at bedside. - HOSPITAL COURSE Hospital Course: Pt presented to the ED after being found down at home for an unknown period of time. He had been treating a cough w/two different OTC cough suppressants in conjunction with his usual medications and it was felt he had a syncopal episode and couldn't get back up. He was found to have evidence of sepsis w/tachycardia, hypoxia, leukocytosis and evidence of pneumonia on imaging. UA was also abnormal, raising possibility of UTI. He was initiated on antibiotics. He showed improvement in his encephalopathy and weakness and both urine and blood cultures were negative. He initially showed signs of mild rhabdomyolysis which improved rapidly. He was in a fib w/RVR on admission, which resolved quickly w/treatment. By the date of discharge, patient was feeling back to baseline. His cough was nearly resolved. He was weaned off oxygen. His strength was improving and his mentation was back to baseline. He will be discharging w/HH for PT/OT. Less than 30 minutes were spent coordinating d/c. - ALLERGIES Allergies/Adverse Reactions: Allergies Allergy/AdvReac Type Severity Reaction Status Date / Time Unable to Assess Allergy Verified 02/17/24 18:25 - MEDICATIONS Home Medications: Ambulatory Orders Medication Instructions Recorded Confirmed Dabigatran Etexilate Mesylate 150 mg PO BID 02/18/24 02/18/24 [Dabigatran Etexilate] Digoxin [Lanoxin] 250 mcg PO DAILY 02/18/24 02/18/24 Glimepiride [Amaryl] 2 mg PO UD 02/18/24 02/18/24 Lisinopril [Zestril] 10 mg PO BID 02/18/24 02/18/24 Metformin HCl [Metformin ER 1,000 mg PO BID 02/18/24 02/18/24 Osmotic] Metoprolol Succinate [Toprol Xl] 50 mg PO DAILY 02/18/24 02/18/24 Potassium Chloride [K-Dur] 20 meq PO DAILY 02/18/24 02/18/24 buPROPion HCL [Bupropion HCl Sr] 150 mg PO UD 02/18/24 02/18/24 traZODone [Desyrel] 50 - 100 mg PO QPM 02/18/24 02/18/24 Cefdinir 300 mg PO BID #8 cap 02/20/24 - PHYSICAL EXAM AT DISCHARGE General Appearance: positive: No acute distress, Alert Eyes Bilateral: positive: Normal inspection Respiratory: positive: No respiratory distress, Other (coarse but clear) Cardiovascular: positive: No murmur, No gallop, Irregularly irregular Abdomen: positive: Non-tender, Nml bowel sounds, No distention, Other (body habitus limits exam) Skin: positive: Color nml, No rash, Warm, Dry Extremities: positive: Nml appearance, No pedal edema Neurologic/Psychiatric: positive: Oriented x3 - LABS Result Diagrams: 02/20/24 05:32 02/20/24 05:32 - SEPSIS Current Stage of Sepsis: Resolved Possible source of Sepsis: Pulmonary, Genitourinary Sepsis Criteria: Recorded Heart Rate greater than 90 bpm, Respiratory: Increasing oxygen requirements, WBC count greater than 12,000 or less than 4000, PROPOSAL WRITER: altered consciousness (unrelated to primary neuro pathology) - QUALITY (Female Hip Fx Only) Was patient sent home on osteoporosis medication?: No - FOLLOW UP Follow Up: [facility]
== END 2024-02-20 11:33 | disposition home health service (06) | DRG 871 ==
LOC: EDUNIT# → ED 18:15 → MS2 21:42 → OBSVTOIN 02-19 07:10
PROVIDERS: ADMIT Hospitalist; ATTEND Family Medicine
DX: A41.9 Sepsis, unspecified organism (principal); G93.41 Metabolic encephalopathy; J18.9 Pneumonia, unspecified organism; N39.0 Urinary tract infection, site not specified; M62.82 Rhabdomyolysis; Z68.41 Body mass index [BMI] 40.0-44.9, adult; I10 Essential (primary) hypertension; I49.3 Ventricular premature depolarization; E11.9 Type 2 diabetes mellitus without complications; I48.91 Unspecified atrial fibrillation; F32.A Depression, unspecified; M54.2 Cervicalgia; F41.9 Anxiety disorder, unspecified; E66.01 Morbid (severe) obesity due to excess calories; Z20.818 Contact with and (suspected) exposure to other bacterial communicable diseases; Z20.822 Contact with and (suspected) exposure to COVID-19; Z20.828 Contact with and (suspected) exposure to other viral communicable diseases; Z79.4 Long term (current) use of insulin; M25.512 Pain in left shoulder; Z91.148 Patient's other noncompliance with medication regimen for other reason; W19.XXXA Unspecified fall, initial encounter; R53.1 Weakness; Z79.84 Long term (current) use of oral hypoglycemic drugs; Z79.899 Other long term (current) drug therapy; Z91.81 History of falling
CPT/HCPCS: 36415; 51702; 70450; 71045; 72125; 80048; 80053; 80306; 81001; 82550; 83036; 83605; 83735; 83880; 84145; 84439; 84443; 84484; 85025; 85610; 85651; 86140; 87040; 87086; 87633; 93005; 96365; 96366; 96367; 96372; 96375; 97165; 99285; A9270; G0378; G0480; J1650; 81003; 82077